=== PATIENT | male | born 1945 | race Caucasian/White ===

== ENCOUNTER → 2018-09-24 | Outpatient (CLI) | payer MEDICARE | END | disposition home or self-care (01) | LOC: LAB SHORT 08:24 → PLD 08:24 | DX: C44.219 Basal cell carcinoma of skin of left ear and external auricular canal (principal); C44.319 Basal cell carcinoma of skin of other parts of face | CPT/HCPCS: 88305 ==

== ENCOUNTER → 2019-03-25 | Outpatient (CLI) | payer MEDICARE | END | disposition home or self-care (01) | LOC: PLD 07:41 → LAB SHORT 07:41 | DX: D04.22 Carcinoma in situ of skin of left ear and external auricular canal (principal) | CPT/HCPCS: 88305 ==

== ENCOUNTER → 2019-04-22 | Outpatient (CLI) | payer MEDICARE | END | disposition home or self-care (01) | LOC: PLD 11:09 → LAB SHORT 11:09 | DX: C44.319 Basal cell carcinoma of skin of other parts of face (principal) | CPT/HCPCS: 88305 ==

== ENCOUNTER → 2019-12-09 | Outpatient (CLI) | payer MEDICARE | END | disposition home or self-care (01) | LOC: PLD 08:35 → LAB SHORT 08:35 | DX: D48.5 Neoplasm of uncertain behavior of skin (principal) | CPT/HCPCS: 88305 ==

== ENCOUNTER → 2020-03-16 | Outpatient (CLI) | payer MEDICARE | LOC: LAB SHORT 08:26 → PLD 08:26 | DX: C44.311 Basal cell carcinoma of skin of nose (principal); C44.319 Basal cell carcinoma of skin of other parts of face | CPT/HCPCS: 88305 ==

== ENCOUNTER 2021-10-18 09:11 | Day surgery (SDC) | payer MEDICARE ==
[~2021-10-18] VITALS: Ht 180.3 cm; Wt 91.1 kg
[2021-10-18] MEDS ORDERED: SPIR25 (09:28)
[2021-10-18] MEDS ORDERED: TOPI15C (09:28)
[2021-10-18] MEDS ORDERED: LOSA25 (09:28)
--- NOTE | 2021-10-18 10:39 | NUR ---
10/18/21 1039 Dodie Davies PT STATES HE FELL IN THE PARKING LOT THIS MORNING. SMALL ABRASION TO RIGHT KNEE AND RIGHT FLANK DISCOMFORT, HE DID NOT HIT HIS HEAD. DR NOTIFIED OF INCIDENT.
--- NOTE | 2021-10-18 12:09 | NUR ---
10/18/21 1200 Chanel Rogers LATE ENTRY RN RECIEVED REPORT FROM NURSE ABREU REGARDING PT'S FALL PRIOR TO COMING INTO THE [facility]. PT TRIPPED ON A CURB IN THE PARKING LOT ON THE WAY IN. WAS NOTIFIED PRE PROCEDURE BY RN. IN STEP DOWN, PT COMPLAINED OF PAIN 2/10 IN THE RIGHT FLANK AREA. PT ALSO HAD BANDAID APPLIED ON THE RIGHT KNEE. RN ENCOURAGED PT TO CONTACT PRIMARY CARE OR SEEK ADDITIONAL CARE IF HE EXPERIENCED ANY WORSENING SYMPTOMS R/T THE FALL. (DIZZINESS, NAUSEA, HEADACHE, TROUBLE BREATHING). PT AND PT'S FAMILY VOICED UNDERSTANDING.
== END 2021-10-18 11:48 | disposition home or self-care (01) ==
LOC: ORSCSDS 09:11
PROVIDERS: Student in an Organized Health Care Education/Training Program
PROC: 0DB78ZX Excision of Stomach, Pylorus, Via Natural or Artificial Opening Endoscopic, Diagnostic (ICD-10-PCS; principal; 2021-10-18 10:30)
PROC: 0DB48ZX Excision of Esophagogastric Junction, Via Natural or Artificial Opening Endoscopic, Diagnostic (ICD-10-PCS; principal; 2021-10-18 10:30)
PROC: 0D758ZZ Dilation of Esophagus, Via Natural or Artificial Opening Endoscopic (ICD-10-PCS; principal; 2021-10-18 10:30)
DX: R13.10 Dysphagia, unspecified (principal); K31.7 Polyp of stomach and duodenum; K29.70 Gastritis, unspecified, without bleeding; K22.2 Esophageal obstruction; I10 Essential (primary) hypertension; K21.9 Gastro-esophageal reflux disease without esophagitis; Z79.899 Other long term (current) drug therapy; Z79.82 Long term (current) use of aspirin
CPT/HCPCS: 88305; 88342; C1726; J2704; J7120

== ENCOUNTER 2024-04-22 11:47 | Emergency (ER) | payer MEDICARE, OTHER ==
[~2024-04-22] VITALS: Ht 182.9 cm; Wt 81.7 kg
[~2024-04-22 11:47] MED LIST: LOSA25; SPIR25; TOPI15C
[2024-04-22] MEDS ORDERED: Diphth,Pertuss(Acell),Tet Vac 0.5 ML VIAL IM ONE ×2 (12:10→16:00)
[2024-04-22 15:17] VITALS: BP 208/101
== END 2024-04-22 16:03 | disposition home or self-care (01) ==
LOC: ER 11:47
DX: S00.83XA Contusion of other part of head, initial encounter (principal); W18.30XA Fall on same level, unspecified, initial encounter; I10 Essential (primary) hypertension; Z86.69 Personal history of other diseases of the nervous system and sense organs; Z88.5 Allergy status to narcotic agent; Z79.899 Other long term (current) drug therapy; Z79.634 Long term (current) use of topoisomerase inhibitor; S00.81XA Abrasion of other part of head, initial encounter
CPT/HCPCS: 70450; 70486; 72125; 90471; 90715; 99283-25

== ENCOUNTER → 2024-10-31 | Outpatient (CLI) | payer MEDICARE, OTHER ==
[~2024-10-31] MED LIST changes: +CARBIDOPA-LEVO1 EA16 PO; -LOSA25; +LOSA25 PO; +METOPROLOL TART25 MG PO; -SPIR25; +SPIR25 PO
[2024-10-31 11:31] LABS: Creatinine, Urine Random 76.4 mg/dL (27.00-270.00); Sodium, Urine, Random 67.0 mmol/L (20-110)
[2024-10-31 11:39] LABS: Osmolality, Urine 392.0 mos/kg (15-1400)
== END | disposition home or self-care (01) ==
LOC: LAB 09:54 → LAB SHORT 09:54
PROVIDERS: Student in an Organized Health Care Education/Training Program
DX: E87.1 Hypo-osmolality and hyponatremia (principal); R53.1 Weakness
CPT/HCPCS: 82570; 83935; 84300

== ENCOUNTER 2025-02-03 20:35 | Inpatient (IN) | payer MEDICARE, OTHER ==
[~2025-02-03] VITALS: Ht 182.9 cm; Wt 78.0 kg
[~2025-02-03 20:35] MED LIST changes: -LOSA25 PO; +LOSARTAN POTAS100 M1 PO
[2025-02-03] MEDS ORDERED: CefTRIAXone Sodium 2,000 MG in NS 100 ML IV ONE (21:15)
[2025-02-03 21:22] LABS: BASOPHILS ABSOLUTE AUTO 0.03 K/mm3 (0.00-0.23); BASOPHILS PERCENT AUTO 0 % (0-2); EOSINOPHILS ABSOLUTE AUTO 0.00 K/mm3 (0.00-0.68); EOSINOPHILS PERCENT AUTO 0 % (0-6); Hematocrit 34.6 % (37.0-53.0); Hemoglobin 12.1 g/dL (13.5-17.5); IMMATURE GRAN ABSOLUTE AUTO 0.10 K/mm3 (0.00-0.10); IMMATURE GRAN PERCENT AUTO 1 % (0-1); LYMPHOCYTES ABSOLUTE AUTO 0.45 K/mm3 (0.84-5.20); LYMPHOCYTES PERCENT AUTO 3 % (21-46); MONOCYTES ABSOLUTE AUTO 0.76 K/mm3 (0.16-1.47); MONOCYTES PERCENT AUTO 4 % (4-13); Mean Corpuscular HGB Conc 35.0 g/dL (31.5-36.5); Mean Corpuscular Volume 92 fL (80-100); NEUTROPHILS ABSOLUTE AUTO 16.27 K/mm3 (1.96-9.15); NEUTROPHILS PERCENT AUTO 92 % (41-73); NRBC ABSOLUTE 0.00 K/mm3 (0.00-0.02); NRBC Auto 0.0 /100 WBC (0.0-0.2); Platelet Count 304 K/mm3 (150-400); RDW Coefficient Variation 12.7 % (11.7-14.2); RDW Standard Deviation 43.1 fL (35.1-46.3)
[2025-02-03 21:35] LABS: Alanine Aminotransfer (ALT/SGP 8.0 U/L (12-78); Albumin, Blood 3.7 g/dL (3.4-5.0); Albumin/Globulin Ratio 1.0 (0.8-1.8); Anion Gap 12.0 mmol/L (3-11); Aspartate Aminotrans (AST/SGOT 13.0 U/L (12-37); Bilirubin, Total 1.1 mg/dL (0.1-1.0); Blood Urea Nitrogen 21.0 mg/dL (8-24); CO2, Blood 22.0 mmol/L (21-32); Calcium, Blood 9.5 mg/dL (8.5-10.1); Chloride, Blood 97.0 mmol/L (98-108); Creatinine, Blood 1.0 mg/dL (0.60-1.20); Globulin, Blood 3.6 g/dL (2.2-4.0); Glucose, Blood 104.0 mg/dL (70-99); Magnesium, Blood 1.9 mg/dL (1.6-2.4); Phosphorus, Blood 2.8 mg/dL (2.5-4.9); Potassium, Blood 4.3 mmol/L (3.5-5.5); Sodium, Blood 127.0 mmol/L (136-145); Total Protein, Blood 7.3 g/dL (6.4-8.2)
[2025-02-03 21:43] LABS: pH Blood Venous 7.41 (7.34-7.37)
[2025-02-03 21:57] LABS: Prothrombin Time Results 11.4 Sec (9.7-11.5)
[2025-02-03 22:31] LABS: Influenza A, PCR NEGATIVE (NEGATIVE); Influenza B, PCR NEGATIVE (NEGATIVE); Resp Syncytial Virus, PCR NEGATIVE (NEGATIVE); SARS-Cov-2 (COVID-19) PCR, MMC NEGATIVE (NEGATIVE)
[2025-02-03] MEDS ORDERED: Ampicillin Sod/Sulbactam Sod 3 GM in NS 100 ML IV ONE (23:20)
[2025-02-03] MEDS ORDERED: NS 1,000 ML IV SCH (23:35)
[2025-02-03] MEDS ORDERED: FLU VACC TS2025(65UP)/MF59C/PF 45 MCG/0.5 ML SYRINGE IM SCH (23:40)
[2025-02-03] MEDS ORDERED: Ondansetron HCl 2 MG / ML 2ML Vial IV PRN (23:40)
[2025-02-04] MEDS ORDERED: HYDROCODONE-AC1 EA19 PO (00:31)
[2025-02-04] MEDS ORDERED: NYSTOP15 GM TOP (00:34)
[2025-02-04 00:50] VITALS: BP 120/77
[2025-02-04] MEDS ORDERED: Sinemet 25-1001 EACH PO (00:55)
[2025-02-04] MEDS ORDERED: Vitamin B-12100 MCG SL (00:56)
--- NOTE | 2025-02-04 01:57 | NUR ---
RECIEVED REPORT ON PATIENT COMING TO 345 FROM GAMAL RYAN IN THE ED. AWAITING PT ARRIVAL.
--- NOTE | 2025-02-04 01:59 | NUR ---
ADMISSION NOTE PT ARRIVED FROM ED ON GURNEY AT 0026. PT TRANSFERED TO HOSPITAL BED VIA SLIDER SHEET. PT ORIENTED TO ROOM, STAFF, AND CALL LIGHT. FAMILY AT BEDSIDE, FAMILY ASSIST WITH MEDICATION AND HEALTH HX. PT RESTING IN BED WITH EVEN AND UNLABORED RESPIRATIONS, BED IN LOWEST POSITION, AND CALL LIGHT WITHIN REACH.
[2025-02-04 04:55] VITALS: BP 139/97
[2025-02-04 05:47] LABS: BASOPHILS ABSOLUTE AUTO 0.04 K/mm3 (0.00-0.23); BASOPHILS PERCENT AUTO 0 % (0-2); EOSINOPHILS ABSOLUTE AUTO 0.00 K/mm3 (0.00-0.68); EOSINOPHILS PERCENT AUTO 0 % (0-6); Hematocrit 33.1 % (37.0-53.0); Hemoglobin 11.3 g/dL (13.5-17.5); IMMATURE GRAN ABSOLUTE AUTO 0.22 K/mm3 (0.00-0.10); IMMATURE GRAN PERCENT AUTO 1 % (0-1); LYMPHOCYTES ABSOLUTE AUTO 1.30 K/mm3 (0.84-5.20); LYMPHOCYTES PERCENT AUTO 6 % (21-46); MONOCYTES ABSOLUTE AUTO 1.07 K/mm3 (0.16-1.47); MONOCYTES PERCENT AUTO 5 % (4-13); Mean Corpuscular HGB Conc 34.1 g/dL (31.5-36.5); Mean Corpuscular Volume 93 fL (80-100); NEUTROPHILS ABSOLUTE AUTO 18.41 K/mm3 (1.96-9.15); NRBC ABSOLUTE 0.00 K/mm3 (0.00-0.02); NRBC Auto 0.0 /100 WBC (0.0-0.2); Platelet Count 305 K/mm3 (150-400); RDW Coefficient Variation 12.9 % (11.7-14.2); RDW Standard Deviation 44.1 fL (35.1-46.3)
[2025-02-04 05:59] LABS: NEUTROPHILS PERCENT AUTO 8 % (41-73)
[2025-02-04] MEDS ORDERED: Ampicillin Sod/Sulbactam Sod 3 GM in NS 100 ML IV SCH (06:00)
--- NOTE | 2025-02-04 06:09 | NUR ---
SHIFT SUMMARY PT IS A&0X2, SELF AND PERSON. PT IS PLEASANT AND COOPERATIVE WITH CARE. FAMILY HAS BEEN AT BEDSIDE T/O SHIFT. NO ACUTE CHANGES SINCE ADMISSION NOTE. FAMILY MENTIONED THE PT WILL BE GOING ON HOSPICE TODAY. PT IS ON 2L NC, WHICH IS NOT BASELINE. NEW IV IN RFA, D/T LAST ONE FALLING OUT BECAUSE OF LOOSE DRESSINGS. PT RESTED T/O SHIFT WITH EVEN AND UNLABORED RESPIRATIONS, BED IN THE LOWEST POSITION, AND CALL LIGHT WITHIN REACH.
[2025-02-04 06:50] LABS: Alanine Aminotransfer (ALT/SGP 10.0 U/L (12-78); Albumin, Blood 3.5 g/dL (3.4-5.0); Albumin/Globulin Ratio 0.9 (0.8-1.8); Anion Gap 14.0 mmol/L (3-11); Aspartate Aminotrans (AST/SGOT 12.0 U/L (12-37); Bilirubin, Total 0.7 mg/dL (0.1-1.0); Blood Urea Nitrogen 25.0 mg/dL (8-24); CO2, Blood 22.0 mmol/L (21-32); Calcium, Blood 9.3 mg/dL (8.5-10.1); Chloride, Blood 99.0 mmol/L (98-108); Creatinine, Blood 1.16 mg/dL (0.60-1.20); Globulin, Blood 3.7 g/dL (2.2-4.0); Glucose, Blood 119.0 mg/dL (70-99); Potassium, Blood 4.5 mmol/L (3.5-5.5); Sodium, Blood 130.0 mmol/L (136-145); Total Protein, Blood 7.2 g/dL (6.4-8.2)
[2025-02-04 07:46] VITALS: BP 134/81
[2025-02-04] MEDS ORDERED: Enoxaparin 40 MG/0.4 ML SYR SC SCH (09:00)
[2025-02-04] MEDS ORDERED: LORazepam 2 MG/ML 1ML Injection IV PRN (10:50)
[2025-02-04] MEDS ORDERED: Morphine Sulfate 20 MG/1ML 1 ML Oral Syringe SL PRN (10:50)
[2025-02-04] MEDS ORDERED: Atropine Sulfate 1% Opth Soln 2ML BTL SL PRN (10:50)
[2025-02-04] MEDS ORDERED: Morphine Sulfate 10 MG/ML 1MLSYR IV PRN (10:50)
[2025-02-04] MEDS ORDERED: Ativan1 MG PO (14:03)
[2025-02-04] MEDS ORDERED: ACET120S PR (14:03)
[2025-02-04] MEDS ORDERED: ATROPINE SULFATE2 M1 SL (14:03)
[2025-02-04] MEDS ORDERED: MORP20L SL (14:04)
[2025-02-04] MEDS ORDERED: TRANSDERM-SCOP1 EA10 TD (14:05)
[2025-02-04] MEDS ORDERED: ONDA4ODT MM (14:05)
--- NOTE | 2025-02-04 14:27 | NUR ---
DISCHARGE NOTE PT DISCHARGED TO HOME WITH HOSPICE, PICKED UP BY TRANSPORT. PACKET PROVIDED TO EMS STAFF. IV REMOVED. TELE RETURNED. FAMILY UPDATED AND AT THE BS AT THE TIME OF TRANSPORT. ALICIA, HOSPICE NURSE, UPDATED ON THE TRANSPORT AND WILL MEET FAMILY AT THEIR RESIDENCE.
== END 2025-02-04 14:10 | disposition hospice, home (50) | DRG 871 ==
LOC: ER 20:35 → MEDS 23:34 → ENPENDDIS 02-04 13:30 → MEDS 02-04 14:10
PROVIDERS: Emergency Medicine; ADMIT Internal Medicine
DX: A41.9 Sepsis, unspecified organism (principal); J18.9 Pneumonia, unspecified organism; J96.01 Acute respiratory failure with hypoxia; J69.0 Pneumonitis due to inhalation of food and vomit; E87.1 Hypo-osmolality and hyponatremia; F01.50 Vascular dementia, unspecified severity, without behavioral disturbance, psychotic disturbance, mood disturbance, and anxiety; G20.A1 Parkinson's disease without dyskinesia, without mention of fluctuations; Z66 Do not resuscitate; I10 Essential (primary) hypertension; Z51.5 Encounter for palliative care; I45.10 Unspecified right bundle-branch block; R53.81 Other malaise; Z23 Encounter for immunization; Z88.8 Allergy status to other drugs, medicaments and biological substances; Z79.899 Other long term (current) drug therapy
CPT/HCPCS: 36415; 71045; 71260; 74177; 80053; 82803; 83605; 83735; 83880; 84100; 84484; 85025; 85610; 85730; 87637; 93005; 93010; 94760; 96365; 96366; 99285-25; A9270; J0295; J0696; J1650; J7030; Q9967